=== PATIENT | male | born 1970 | race African-American/Black ===

== ENCOUNTER 2016-04-23 08:58 | Emergency (ER) | payer OTHER ==
[~2016-04-23] VITALS: Ht 170.2 cm; Wt 96.0 kg
[~2016-04-23 08:58] MED LIST: AMOX500C PO; PRED10 PO; ZITH250T PO
[2016-04-23 08:59] VITALS: BP 158/100; PULSE 78; RESP 16; TEMP 98.4; O2SAT 97
== END 2016-04-23 10:00 | disposition left against medical advice (07) ==
LOC: NEPB 08:58
DX: H57.8 Other specified disorders of eye and adnexa (principal)
CPT/HCPCS: 99281

== ENCOUNTER 2016-06-21 23:30 | Emergency (ER) | payer OTHER ==
[~2016-06-21] VITALS: Ht 170.2 cm; Wt 96.0 kg
[2016-06-21 23:34] VITALS: BP 135/88; PULSE 95; RESP 15; TEMP 97.9; O2SAT 96
[2016-06-22] MEDS ORDERED: KETOROLAC TROMETHAMINE 60 MG/2 ML (IM) VIAL IM ONE (01:15)
[2016-06-22] MEDS ORDERED: predniSONE 50 MG TAB PO ONE (01:15)
[2016-06-22] MEDS ORDERED: PRED50 PO (01:19)
[2016-06-22] MEDS ORDERED: HYDR-3533 PO (01:19)
--- NOTE | 2016-06-22 01:19 | PD ---
HPI Chief Complaint: Pain: Acute or Chronic Time Seen by Provider: 01:05 Travel History International Travel<30 days: No Contact w/Intl Traveler<30days: No Traveled to known affect area: No History of Present Illness HPI 46-year-old male with history of pollen mild rheumatica, rheumatoid arthritis, on methotrexate as well as 5 mg of prednisone daily, here for evaluation of a flare of his PMR. Patient reports that since he woke up this morning he has been having left arm, shoulder, elbow, wrist pain as well as left knee and ankle pain. Patient also has swelling in these joints. He reports that the symptoms are similar to previous episodes of PMR flares. He denies fevers or chills. No trauma. He reports that his symptoms have slightly improved since waking up this morning, however he is still having a moderate amount of pain in these joints. Pain is worse with movement and palpation. PFSH Past Medical History Arthritis: No Autoimmune Disease: No Blood Disorders: No Anxiety: No Depression: No Cancer: No Cardiovascular Problems: No Chemotherapy: No Cerebrovascular Accident: No Diabetes: Yes Endocrine: No GERD: No Genitourinary: No Headaches: No Hepatitis: No Hiatal Hernia: No Hypertension: No Immune Disorder: No Musculoskeletal: No Neurologic: No Psychiatric: No Reproductive: No Respiratory: No Migraines: No Radiation Therapy: No Seizures: No Sickle Cell Disease: No Ulcer: No Past Surgical History AICD: No Appendectomy: No Cholecystectomy: No Pacemaker: No Other Surgery: Yes (HERNIA REPAIR A CHILD) Family History Family Hypercholesterolemia: Yes Social History Alcohol Use: No Tobacco Use: Yes (3-4 CIGARS A DAY) Substance Use: Yes (marijuana) Allergies-Medications (Allergen,Severity, Reaction): Coded Allergies: No Known Allergies (Verified , 06/22/16) Reported Meds & Prescriptions Reported Meds & Active Scripts Active Prednisone 10 Mg Tab 10 Mg PO DAILY Amoxicillin 500 Mg Cap 500 Mg PO TID Zithromax Z-Jimmy (Azithromycin) 250 Mg Tab 250 Mg PO DIRECTED 500 MG (2 TABLETS) PO ON DAY 1, THEN 250 MG (1 TABLET) PO ON DAYS 2 TO 5. Review of Systems Except as stated in HPI: all other systems reviewed are Neg Physical Exam Narrative GENERAL: Well-developed, well-nourished, comfortable, no acute distress. SKIN: Warm and dry. No rash. HEAD: Atraumatic. Normocephalic. EYES: Pupils equal and round. No scleral icterus. No injection or drainage. ENT: Mucous membranes pink and moist. NECK: Trachea midline. No JVD. CARDIOVASCULAR: Regular rate and rhythm. Distal pulses brisk and equal bilaterally. RESPIRATORY: No accessory muscle use. Clear to auscultation. Breath sounds equal bilaterally. GASTROINTESTINAL: Abdomen soft, non-tender, nondistended. MUSCULOSKELETAL: No obvious deformities. No clubbing. No cyanosis. Moderate edema to left upper extremity, and left hand as well as left knee. There is mild warmth to these joints. Mild to moderate tenderness throughout the left upper extremity and left lower extremity. NEUROLOGICAL: Awake and alert. No obvious cranial nerve deficits. Motor grossly within normal limits. Normal speech. PSYCHIATRIC: Appropriate mood and affect; insight and judgment normal. Data Data Last Documented VS Vital Signs Date Time Temp Pulse Resp B/P Pulse Ox O2 Delivery O2 Flow Rate FiO2 06/21/16 23:34 97.9 95 15 135/88 96 Room Air Orders Ketorolac Inj (Toradol Inj) (06/22/16 01:15) Prednisone (Deltasone) (06/22/16 01:15) MDM Medical Decision Making Medical Screen Exam Complete: Yes Emergency Medical Condition: Yes Differential Diagnosis PMR flare, RA flare, septic arthritis unlikely. Narrative Course Initial vital signs show heart rate 95, blood pressure 135/80, pulse ox 96% on room air, oral temp of 97.9F. Patient does have moderate swelling to his left upper extremity and left lower extremity. There is some warmth to his joints in his extremities. He does have limited range of motion in his left shoulder, however the rest of his joints he has normal range of motion. I do not suspect septic arthritis. This is more likely PMR/RA flare. He takes 5 mm's of prednisone daily. I'll give him a prescription for prednisone 50 mg for the next 5 days, a dose of IM Toradol here, and a prescription for pain medication. He is stable for discharge home with outpatient follow-up with his primary care physician this week. He was informed on when to return to the emergency department. He verbalizes understanding and agreement with plan. Diagnosis Primary Impression: PMR (polymyalgia rheumatica) Referrals: Primary Care Physician 3 days Additional Instructions: Follow-up with your primary care physician this week. Return to the emergency department for worsening symptoms or any other concerns. Scripts Hydrocodone-Acetaminophen (Lortab)5-325 Mg Tab1 Tab PO Q6H PRN (PAIN) #15 TAB Ref 0 Prov:Bret Jones MD 06/22/16 Prednisone 50 Mg Tab50 Mg PO DAILY 5 Days Ref 0 Prov:Bret Jones MD 06/22/16 Disposition: 01 DISCHARGE HOME Condition: Stable Bret Jones MD Jun 22, 2016 01:19
== END 2016-06-22 02:02 | disposition home or self-care (01) ==
LOC: NEPE 23:30
DX: M35.3 Polymyalgia rheumatica (principal); Z79.899 Other long term (current) drug therapy; E11.9 Type 2 diabetes mellitus without complications; Z72.0 Tobacco use
CPT/HCPCS: 96372; 99283; J1885; J7512

== ENCOUNTER 2017-02-04 19:11 | Emergency (ER) | payer OTHER, MEDICAID ==
[~2017-02-04] VITALS: Ht 170.2 cm; Wt 97.5 kg
[~2017-02-04 19:11] MED LIST changes: -AMOX500C PO; +HYDR-3533 PO; +PRED50 PO; -ZITH250T PO
[2017-02-04 19:12] VITALS: BP 136/83; PULSE 78; RESP 16; TEMP 98.6; O2SAT 98
[2017-02-04] MEDS ORDERED: diphenhydrAMINE HCL 50 MG CAP PO ONE (20:45)
[2017-02-04] MEDS ORDERED: predniSONE 20 MG TAB PO ONE (20:45)
--- NOTE | 2017-02-04 20:47 | PD ---
HPI Chief Complaint: Skin Problem Time Seen by Provider: 20:37 Travel History International Travel<30 days: No Contact w/Intl Traveler<30days: No Traveled to known affect area: No History of Present Illness HPI 46-year-old black male presents to emergency department for evaluation of a pruritic rash which has developed over the past 5 days. Patient has history of rheumatoid arthritis and polymyalgia rheumatica. He states he typically takes 10 mg of prednisone a day. He has not taken his medication in the last several days. Initially started off with a small pruritic raised area of hives to his right shoulder and left flank which seemed to resolve spontaneously we also developed some slightly hyper pigmented areas to his right flank which was also have been very pruritic. He started back on his prednisone today. He also is on state that he had several episodes of nausea vomiting on Friday and Friday but that did resolve. He's had a sore throat and a slight ulceration on the left lateral aspect of his posterior pharynx. He's had some general malaise and feeling hot. He denies actually noting a temperature. He denies any headaches, dizziness, ear pain, cough, congestion, abdominal pain or urinary symptoms. He ate a sticky bun any Twix prior to coming in today. He denies any pustular vesicular lesions. He has had a history of shingles in the past involving the right side but this is different as far as his presentation and physical findings. [facility] Past Medical History Narrative Medical Rheumatoid arthritis, polymyalgia rheumatica, shingles Arthritis: No Autoimmune Disease: No Blood Disorders: No Anxiety: No Depression: No Cancer: No Cardiovascular Problems: No Chemotherapy: No Cerebrovascular Accident: No Diabetes: Yes Endocrine: No GERD: No Genitourinary: No Headaches: No Hepatitis: No Hiatal Hernia: No Hypertension: No Immune Disorder: No Musculoskeletal: No Neurologic: No Psychiatric: No Reproductive: No Respiratory: No Migraines: No Radiation Therapy: No Seizures: No Sickle Cell Disease: No Ulcer: No Tetanus Vaccination: < 5 Years Past Surgical History AICD: No Appendectomy: No Cholecystectomy: No Pacemaker: No Other Surgery: Yes (HERNIA REPAIR A CHILD) Family History Family Hypercholesterolemia: Yes Social History Alcohol Use: No Tobacco Use: Yes (3-4 CIGARS A DAY) Substance Use: Yes (marijuana) Allergies-Medications (Allergen,Severity, Reaction): Coded Allergies: No Known Allergies (Verified , 02/04/17) Reported Meds & Prescriptions Reported Meds & Active Scripts Active Prednisone 10 Mg Tab 10 Mg PO DAILY Review of Systems General / Constitutional: Positive: Other (feeling hot), No: Fever Eyes: No: Blurred Vision, Photophobia, Visual changes HENT: Positive: Sore Throat, No: Headaches, Neck Pain, Earache Cardiovascular: No: Chest Pain or Discomfort Respiratory: No: Shortness of Breath Gastrointestinal: Positive: Nausea, Vomiting, No: Diarrhea, Abdominal Pain Genitourinary: No: Dysuria Musculoskeletal: No: Arthralgias, Limited ROM, Pain Skin: Positive Rash, Positive Itching, Positive Hives Neurologic: No: Weakness Psychiatric: No: Depression Endocrine: No: Polydipsia Hematologic/Lymphatic: No: Easy Bruising Physical Exam Narrative GENERAL: Well-developed, well-nourished in no acute distress. Nontoxic appearing. HEAD: Normocephalic, atraumatic. EYES: Pupils equal round and reactive. Extraocular motions intact. No scleral icterus. No injection or drainage. ENT: TMs clear without erythema. The external auditory canals clear. Nose: clear . Posterior pharynx is pink and moist. There is a tender area of ulceration to the left posterior pharynx and left lower gingival area No tonsillar edema or exudate. Uvula midline. Airway patent. NECK: Trachea midline.Supple, nontender, moves head freely. No central bony tenderness or spasm. CARDIOVASCULAR: Regular rate and rhythm without murmurs, gallops, or rubs. RESPIRATORY: Clear to auscultation. Breath sounds equal bilaterally. No wheezes , rales, or rhonchi. GASTROINTESTINAL: Abdomen soft, non-tender, nondistended. No hepato-splenomegaly , or palpable masses. No guarding. EXTREMITIES: No clubbing, cyanosis, or edema. No joint tenderness, effusion, or edema noted. BACK: Nontender without deformity or crepitance. No flank tenderness. Skin: The patient has several maculopapular plaques hyperpigmented skin along the right flank, upper shoulders, left axilla. There is no vesicles or pustules. No blanching. Data Data Last Documented VS Vital Signs Date Time Temp Pulse Resp B/P (MAP) Pulse Ox O2 Delivery O2 Flow Rate FiO2 02/04/17 19:12 98.6 78 16 136/83 (100) 98 Room Air Orders Orders Ed Discharge Order (02/04/17 20:38) Prednisone (Deltasone) (02/04/17 20:45) Diphenhydramine (Benadryl) (02/04/17 20:45) MDM Medical Decision Making Medical Screen Exam Complete: Yes Emergency Medical Condition: Yes Medical Record Reviewed: Yes Differential Diagnosis Differential diagnoses: Viral exanthem, autoimmune rash, contact dermatitis, viral syndrome Narrative Course Patient's given Benadryl 50 mg and prednisone 40 mg by mouth here in the ER. See no source of any bacterial infection. The patient is aware the etiology of the rash is unclear at this time. He will increase his prednisone dosing at home and take additional Benadryl. He is advised to recheck with a primary care doctor this week for a second opinion. Diagnosis Primary Impression: dermatitis Additional Impression: viral syndrome Patient Instructions: General Instructions Additional Instructions: Rest. Take 40 mg of prednisone for the next 5 days then taper down to 20 mg for 2 additional days then back to your 10 mg daily. Take 50 g of Benadryl 4 times daily. Use Dove soap. Follow-up with a medical doctor in the next 3-5 days for recheck. Return to the ER for emergencies. Med/Other Pt SpecificInfo: Existing Med Changed Disposition: 01 DISCHARGE HOME Condition: Stable Santosh Davenport Feb 04, 2017 20:47
== END 2017-02-04 21:05 | disposition home or self-care (01) ==
LOC: NEPK 19:11
DX: L30.9 Dermatitis, unspecified (principal); B34.9 Viral infection, unspecified; M06.9 Rheumatoid arthritis, unspecified; M35.3 Polymyalgia rheumatica; E11.9 Type 2 diabetes mellitus without complications; Z72.0 Tobacco use
CPT/HCPCS: 99283; J7512; Q0163